=== PATIENT | male | born 1965 | race Caucasian/White ===

== ENCOUNTER 2017-06-21 14:19 | Emergency (ER) | payer MEDICAID, SELFPAY ==
[2017-06-21 14:26] VITALS: BP 138/84; PULSE 80; RESP 16; TEMP 36.8; O2SAT 96; BMI 28.8
--- NOTE | 2017-06-21 14:35 | XR_ITS ---
XR foot LT 2V HISTORY: ITS.REASON: R/O Fx ORDERING PHYSICIAN: Juan Carlos Dunbar MD PATIENT AGE: 51 years COMPARISON: None FINDINGS: There is a nondisplaced oblique fracture involving the mid shaft of the proximal phalanx of the fifth toe. No callus formation. No other significant anomalies. IMPRESSION: Nondisplaced oblique fracture proximal phalanx fifth toe
--- NOTE | 2017-06-21 14:43 | PC.NURSE ---
pt is belligierent and refuses to allow staff to continuously monitor his vital signs. pt very demanding and out of way with the registration staff. blood pressure cuff removed.
--- NOTE | 2017-06-21 14:52 | HMH.EDGENADL ---
ED Disposition Clinical Impression: Fracture of toe of left foot Qualifiers: Encounter type: initial encounter Toe: lesser toe Fracture type: closed Phalanx: proximal Fracture alignment: nondisplaced Qualified Code(s): S92.515A - Nondisplaced fracture of proximal phalanx of left lesser toe(s), initial encounter for closed fracture Disposition: Home, Self-Care Condition on Discharge: Good Instructions: DI for Toe Fracture, How to Use a Walking Boot, How to Joselo Tape Additional Instructions: Joselo tape fourth and fifth toes, change every 1-2 days. Orthopedic boot. Follow-up with orthopedics within 1 week, call for appointment. Additional instructions for CONTROLLED SUBSTANCES: You have been prescribed a medication that is a controlled substance. Controlled substances include pain medications known as opiates and sedative nerve medications known as benzodiazepines. Some common opiates include: Codeine (such as Tylenol #3) Hydrocodone (Vicodin, Lortab, Lorcet, [place]) Oxycodone (Percocet, Percodan, Oxycodone, Oxy IR) Some common benzodiazepines include: Diazepam (Valium) Lorazepam (Ativan) Alprazolam (Xanax) Clonazepam (Klonopin) Oxazepam (Serax) All of these controlled substances are highly addictive and frequently abused. Misuse can and frequently does lead to addiction as well as overdose and . Medication should be stored in a locked cabinet or other secure storage unit. Do not store the medication in a motor vehicle. Short term supplies, 3 days or less, are prescribed because of the highly addictive nature of the medication. Any of the controlled substance medication NOT taken should be disposed of properly and NOT SAVED. The recommended method of disposing of unused medications is: Place the medicines in a sealable plastic bag. If the medicine is a solid, crush it or add water to dissolve it. Add something undesirable (cat litter, coffee grounds, etc.) Dispose of sealed bag in household trash Do not flush or pour unused medicines down a sink or drain. Controlled substances should not be shared, given away or sold. Because of the addictive nature and frequent abuse, these medications are sometimes stolen. These medications should be kept in a safe place where they cannot be stolen. Do not keep them in your car or purse. Lost or stolen prescriptions for controlled substances WILL NOT BE REFILLED in this emergency department, regardless of whether a police report was filed. Prescriptions: Hydrocod/Acet 5/325 mg [[place] 5/325mg tablet] 1 tab PO Q6HP PRN #10 tab PRN Reason: Pain Referrals: Samir Leonard [Primary Care Provider] - - Critical Care Critical Care Time: No Attestation: On 06/21/17, the high probability of a clinically significant, sudden or life threatening deterioration of the following system(s) required my full and direct attention, intervention and personal management. The time I documented below is in addition to time spent performing reported procedures but includes the following listed in this critical care notation. Medical Decision Making - Jeremie Inquiry Pt receiving controlled substance: Yes Jeremie was queried for this patient: Yes Reference #:: [id number] Risks and benefits of using a controlled substance: were discussed with pt by me Comment: 0 rxs. Vital Signs: 06/21/17 14:26 Temperature 98.3 F Temperature Source Oral Pulse Rate [Right Radial] 80 Respiratory Rate 16 Blood Pressure [Right Arm] 138/84 Blood Pressure Mean [Right Arm] 102 Blood Pressure Source [Right Arm] Automatic Cuff Blood Pressure Position [Right Arm] Sitting 02 Sat by Pulse Oximetry 96 Oxygen Delivery Method Room Air Orders (Tests/Meds): ORDERS Category Date Time Status Foot XR left 2 views [XR foot LT 2V] Stat Exams 06/21/17 14:35 Ordered - Radiology Data #1 Image(s): Foot/Toes Image Reviewed: Yes I reviewed the patient's radiology image Nondisplaced fracture pro
[2017-06-21 16:09] VITALS: BP 124/75; PULSE 64; RESP 16; TEMP 36.8
== END 2017-06-21 16:12 | disposition home or self-care (01) ==
PROVIDERS: Emergency Provider Emergency Medicine; Family Provider Family Medicine; PCP Family Medicine
DX: S92.515A Nondisplaced fracture of proximal phalanx of left lesser toe(s), initial encounter for closed fracture (principal); W55.19XA Other contact with horse, initial encounter; Y92.73 Farm field as the place of occurrence of the external cause
CPT/HCPCS: 73630; 99281

== ENCOUNTER 2018-05-25 06:22 | Observation (INO) ==
--- NOTE | 2018-05-25 06:45 | Emergency Department Note ---
ED Disposition Clinical Impression: Cellulitis Qualifiers: Site of cellulitis: extremity Site of cellulitis of extremity: upper extremity Laterality: right Qualified Code(s): L03.113 - Cellulitis of right upper limb Disposition: Admitted as Observation Condition on Discharge: Good Referrals: Samir Leonard [Primary Care Provider] - - Critical Care Critical Care Time: No Attestation: On 05/25/18, the high probability of a clinically significant, sudden or life threatening deterioration of the following system(s) required my full and direct attention, intervention and personal management. The time I documented below is in addition to time spent performing reported procedures but includes the following listed in this critical care notation. Medical Decision Making - Medical Records Medical records reviewed: Yes: I reviewed the patient's medical records. - Jeremie Inquiry Pt receiving controlled substance: No Vital Signs: 05/25/18 06:27 05/25/18 07:27 Temperature 97.8 F 98.2 F Temperature Source Oral Oral Pulse Rate [Left] 92 H 70 Respiratory Rate 18 20 Blood Pressure [Right Arm] 178/110 H 130/98 H Blood Pressure Mean [Right Arm] 132 108 Blood Pressure Source [Right Arm] Automatic Cuff Automatic Cuff Blood Pressure Position [Right Arm] Sitting Sitting 02 Sat by Pulse Oximetry 98 99 Oxygen Delivery Method Room Air Room Air - Lab Data Lab results reviewed: Yes: I reviewed the patient's lab results. Lab Results 05/25/18 06:55: WBC 8.1, RBC 4.41 L, Hgb 15.2, Hct 44.2, MCV 100.1 H, MCH 34.4 H , MCHC 34.3, RDW 14.3, Plt Count 189, MPV 7.9, Neut % (Auto) 67.1, Lymph % (Auto) 23.8, [place] % (Auto) 7.2, Eos % (Auto) 1.3, Baso % (Auto) 0.7, Neut # (Auto) 5.4, Lymph # (Auto) 1.9, [place] # (Auto) 0.6, Eos # (Auto) 0.1, Baso # (Auto) 0.1 05/25/18 06:55: Sodium 136, Potassium 3.9, Chloride 100, Carbon Dioxide 23, Anion Gap 16.9 H, BUN 11, Creatinine 0.93, Estimated Creat Clear 119, Estimated GFR 85, Est GFR ( Amer) 103, Glucose 149 H, Calcium 9.6, Total Bilirubin 0.6, AST 57 H, ALT 95 H, Alkaline Phosphatase 113, C-Reactive Protein < 0.2, Total Protein 8.5 H, Albumin 3.7, Globulin 4.8 H, Albumin/Globulin Ratio 0.8 L Result diagrams: 05/25/18 06:55 05/25/18 06:55 Orders (Tests/Meds): ED MEDICATIONS Generic Name Dose Route Start Last Admin Trade Name Freq PRN Reason Stop Dose Admin Ampicillin Sodium/Sulbactam 100 mls @ 200 mls/hr 05/25/18 09:00 Sodium 3 gm/ Sodium Chloride IV 06/08/18 08:59 Q6H PETE Clindamycin Phosphate 900 mg/ 106 mls @ 100 mls/hr 05/25/18 08:00 Sodium Chloride IV 06/08/18 07:59 Q8H PETE Sodium Chloride 10 ml 05/25/18 07:00 Saline Flush 10ml Syringe IV 06/24/18 06:59 NEEDED PRN Maintain IV Site Discontinued Medications Generic Name Dose Route Start Last Admin Trade Name Freq PRN Reason Stop Dose Admin Ketorolac Tromethamine 30 mg 05/25/18 06:43 05/25/18 07:22 Toradol 30mg/Ml Vial IV 05/25/18 06:44 30 mg ONCE ONE Administration Tetanus/Diphtheria Toxoids 0.5 ml 05/25/18 06:44 Tenivac 0.5ml Syringe IM 05/25/18 06:45 .ONCE ONE Tetanus/Reduced Diphtheria/Acell Pertussis 0.5 ml 05/25/18 06:46 05/25/18 07:25 Adacel Tdap 0.5ml Syringe IM 05/25/18 06:47 0.5 ml .ONCE ONE Administration ORDERS Category Date Time Status Complete Blood Count Auto Diff Stat Lab 05/25/18 06:55 Results Erythrocyte Sedimentation Rate Stat Lab 05/25/18 06:55 Results Blood Culture Stat Micro 05/25/18 06:50 Received - Radiology Data #1 Image(s): Hand Image Reviewed: Yes I reviewed the patient's radiology image Preliminary Findings: Abnormal (sts and old fx ) - Physician Consults Physician Consulted: bustos Reason -: Pt condition Skin/Abscess/FB HPI - General Chief complaint: Extremity Problem,Nontraumatic Stated complaint: Rt Hand swelling Time Seen by Provider: 05/25/18 06:35 Mode of Arrival: Ambulatory Source of Information: Patient, Medical Record Limitations: No Limitations Description of Symptoms (Recalled from ER Triage Doc. by RN): Pt states he woke up this AM and right hand was swollen and painfull, denies injury - History of Present Illness HPI narrative: pt with swelling and tenderness rt hand - denies trauma MD complaint: abscess/boil Onset (ago): day(s) Tetanus up to date: no Location: R hand Severity: moderate Associated symptoms: denies other symptoms, other (pt is rt handed ) Treatments prior to arrival: none - Related Data Home Medications Medication Instructions Recorded Confirmed No Known Home Medications 05/25/18 05/25/18 Allergies Allergy/AdvReac Type Severity Reaction Status Date / Time No Known Allergies Allergy Verified 05/25/18 06:38 [facility] History - Hepatitis A Screen Drug use history?: No High risk sexual behaviors?: No History of sexually transmitted infection?: No Currently employed?: No Childcare worker?: No Do you have indoor plumbing?: Yes Do you have electricity?: Yes Attestation statement:: This patient has been screened for Hepatitis A risk factors. I have reviewed the patient's past medical history: Yes Medical History: Denies:: Diabetes Mellitus Type 1, Diabetes Mellitus Type 2 Amputation: No Fractures: No - Social History Smoking Status: Never smoker Alcohol Intake: current Alcohol Intake Frequency:: a few times a week Occupational Status: employed - Psychiatric History Expresses thoughts of harming self/others: None Suicide Plan Description: No Plan ROS Obtained: Yes All systems reviewed & no additional complaints - Constitutional Constitutional: Denies fever(s) - Eyes Eyes: Denies change in vision - ENT Ears, Nose, Mouth, and Throat: Denies sore throat - Cardiovascular Cardiovascular: Denies chest pain - Respiratory Respiratory: No cough - Gastrointestinal Gastrointestingal: Denies: abdominal pain - Genitourinary Male Genitourinary: Denies hematuria - Musculoskeletal Musculoskeletal: Reports as per HPI, Reports joint pain, Reports joint swelling, Reports limited range of motion - Integumentary/Breasts Skin/Breast: Denies rash - Neurologic Neurologic: Denies seizure-like activity Physical Exam - General General appearance: alert - Head Head exam: normocephalic - Eye Eye exam: Present: PERRL, EOMI - ENT ENT exam: Present: mucous membranes moist - Neck Neck exam: Present: trachea midline - Respiratory Respiratory exam: Absent: respiratory distress - Cardiovascular Cardiovascular exam: Present: regular rate - Expanded Upper Extremity Exam Right Hand exam: Present: tenderness, swelling, erythema, other (sl flexion contracture rt hand at base of 4th/ring finger ). Absent: full ROM Vascular exam: Normal: capillary refill - Expanded Lower Extremity Exam Right Neurovascular/Tendon exam: Present: motor deficit - Neurological Exam Neurological exam: Present: alert, oriented X3, CN II-XII intact - Psychiatric Psychiatric exam: Present: normal affect - Skin Skin exam: Absent: rash
[2018-05-25 07:08] LABS: Basophils # 0.1 K/mm3 (0-0.2); Basophils % 0.7 % (0.1-2.0); Eosinophils # 0.1 K/mm3 (0.0-0.4); Eosinophils % 1.3 % (0.1-12.0); Hematocrit 44.2 % (42.0-52.0); Hemoglobin 15.2 g/dL (14.1-18.0); Lymphocytes # 1.9 K/mm3 (0.7-4.5); Lymphocytes % 23.8 % (10-50); Mean Corpuscular HGB Conc 34.3 g/dL (31.8-35.4); Mean Corpuscular Hemoglobin 34.4 pg (27.0-31.2); Mean Corpuscular Volume 100.1 fl (80-94); Mean Platelet Volume 7.9 fl (7.4-10.4); Monocytes # 0.6 K/mm3 (0.1-1.0); Monocytes % 7.2 % (1.7-9.3); Neutrophils # 5.4 K/mm3 (1.8-7.8); Neutrophils % 67.1 % (37.0-80.0); Platelet Count 189 K/mm3 (142-424); Red Blood Count 4.41 M/mm3 (4.60-6.20); Red Cell Distribution Width 14.3 % (11.5-17.5); White Blood Count 8.1 K/mm3 (4.8-10.8)
[2018-05-25 07:17] LABS: Alanine Aminotransferase 95 U/L (12-78); Albumin Level 3.7 gm/dL (3.4-5.0); Albumin/Globulin Ratio 0.8 (1.1-1.8); Alkaline Phosphatase 113 U/L (46-116); Anion Gap 16.9 mEq/L (5-15); Aspartate Amino Transferase 57 U/L (15-37); Bilirubin,Total 0.6 mg/dL (0.2-1.0); Blood Urea Nitrogen 11 mg/dL (7-18); Calcium 9.6 mg/dL (8.5-10.1); Carbon Dioxide 23 mmol/L (21.0-32.0); Chloride 100 mmol/L (98-107); Globulin 4.8 gm/dl (1.3-3.2); Glucose 149 mg/dL (74-106); Potassium 3.9 mmoL/L (3.5-5.1); Sodium 136 mmol/L (136-145); Total Protein,Serum 8.5 gm/dL (6.4-8.2)
[2018-05-25 07:28] LABS: C-Reactive Protein < 0.2 mg/L (0.0-0.9)
--- NOTE | 2018-05-25 08:33 | Consult Report ---
*Admission Date: 05/25/18 *Chief complaint: Pain and swelling fourth finger right hand *History of present illness: Patient is a 52-year-old [id number] male who presented to the ER this morning with complaints of pain and swelling over the right hand and right fourth finger. There is no history of any injury. He says he had some discomfort in the hand yesterday and woke up this morning with severe pain, swelling and stiffness in his hand. 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 He localizes the pain to the volar aspect of the fourth finger mainly at the base of the finger extending proximally into the distal part of the hand and distally onto the volar aspect of the fourth finger. He reports no pain in other fingers. No history of any fevers, chills or rigors. No history of any previous hand problems or surgery. He says he does not have any medical problems and in fact he does not even have a primary care physician. However, he says he was told that he had high blood pressure long time ago but never received any treatment. He last ate a full meal last night and had fluids this morning when he woke up. Review of Systems - Review of Systems Review of systems:: pertinent systems reviewed and negative unless documented below - Constitutional Denies body ache(s), Denies chills, Denies fever(s) - Eyes Denies blurry vision, Denies change in vision - ENT Denies abnormal hearing - *Cardiovascular Denies chest pain, Denies chest pain with activity, Denies shortness of breath - *Respiratory Denies cough, Denies shortness of breath with activity - *Gastrointestinal Denies abdominal pain, Denies change in bowel habits, Denies difficulty swall owing - *Genitourinary Denies difficulty urinating, Denies painful urination - *Musculoskeletal Reports joint pain, Reports limited joint movement, Denies abnormal walking - Integumentary/Breasts Denies bleeding lesions, Denies skin ulcer - *Neurologic Denies abnormal walking, Denies seizure-like activity [facility] History I have reviewed the patient's past medical history: Yes Medical History: Denies:: Diabetes Mellitus Type 1, Diabetes Mellitus Type 2 Amputation: No Fractures: No - *Social History Smoking Status: Never smoker Alcohol Intake: current Alcohol Intake Frequency:: a few times a week *Occupational Status:: employed *Travel in the last 8 weeks: None - Psychiatric History Expresses thoughts of harming self/others: None Suicide Plan Description: No Plan Family Hx:: Non-contributory Meds Home Medications Medication Instructions Recorded Confirmed Type No Known Home Medications 05/25/18 05/25/18 History Allergies Allergy/AdvReac Type Severity Reaction Status Date / Time No Known Allergies Allergy Verified 05/25/18 06:38 Exam Vital signs and Labs for Last 24 Hours: Temp Pulse Resp BP Pulse Ox 98.2 F 70 20 130/98 H 99 05/25/18 07:27 05/25/18 07:27 05/25/18 07:27 05/25/18 07:27 05/25/18 07:27 Laboratory Results - last 24 hr 05/25/18 06:55: WBC 8.1, RBC 4.41 L, Hgb 15.2, Hct 44.2, MCV 100.1 H, MCH 34.4 H , MCHC 34.3, RDW 14.3, Plt Count 189, MPV 7.9, Neut % (Auto) 67.1, Lymph % (Auto) 23.8, [place] % (Auto) 7.2, Eos % (Auto) 1.3, Baso % (Auto) 0.7, Neut # (Auto) 5.4, Lymph # (Auto) 1.9, [place] # (Auto) 0.6, Eos # (Auto) 0.1, Baso # (Auto) 0.1 05/25/18 06:55: Sodium 136, Potassium 3.9, Chloride 100, Carbon Dioxide 23, Anion Gap 16.9 H, BUN 11, Creatinine 0.93, Estimated Creat Clear 119, Estimated GFR 85, Est GFR ( Amer) 103, Glucose 149 H, Calcium 9.6, Total Bilirubin 0.6, AST 57 H, ALT 95 H, Alkaline Phosphatase 113, C-Reactive Protein < 0.2, Total Protein 8.5 H, Albumin 3.7, Globulin 4.8 H, Albumin/Globulin Ratio 0.8 L I & O for Last 24 hours: Intake & Output 05/22/18 05/23/18 05/24/18 05/25/18 11:59 11:59 11:59 11:59 Weight 200 lb - Constitutional no acute distress, average body habitus, cooperative - *Routine HEENT Exam Head: Present: normocephalic, atraumatic Eye: Present: EOMI, PERRL ENT: Present: mucous membranes moist - *Routine Neck Exam Present: supple, full ROM, trachea midline. Absent: lymphadenopathy - *Routine Respiratory Exam Present: CTA bilaterally. Absent: respiratory distress - *Routine Cardiovascular Exam Present: RRR, Normal S1, Normal S2 - *Routine Extremities Exam Comments: On examination of his right hand, he has callosities over the palm and over the base of fingers on the volar aspect. There is diffuse swelling, erythema and tenderness over the fourth finger on the volar aspect. The tenderness is extending onto the hand to the level of the distal palmar crease. There is increased warmth and erythema involving the fourth finger. The [place] signs are positive- the fourth finger is in a slightly flexed posture, he is tender over the flexor tendon sheath of the fourth finger, there is marked pain with passive extension of the fourth finger and there is diffuse fusiform swelling of the fourth finger. Sensation is intact light touch throughout; Capillary refill is brisk. Diagnostic imaging: X-rays of the right hand performed today at [facility] reviewed along with radiologist report. The x-rays are showing diffuse swelling of the fourth digit. There is old healed fracture of the fifth metacarpal neck. No acute injuries noted. - Routine Back/Spine/Pelvis Exam Back/Spine: Present: full ROM - *Routine Skin Exam Present: intact, warm, normal turgor - *Routine Neurological Exam Present: alert, oriented X3, CN II-XII intact - Routine Psychiatric Exam Present: normal affect, cooperative Results - Labs Result Diagrams: 05/25/18 06:55 05/25/18 06:55 Labs: Abnormal lab results 05/25/18 05/25/18 Range/Units 06:55 06:55 RBC 4.41 L (4.60-6.20) M/mm3 MCV 100.1 H (80-94) fl MCH 34.4 H (27.0-31.2) pg Anion Gap 16.9 H (5-15) mEq/L Glucose 149 H (74-106) mg/dL AST 57 H (15-37) U/L ALT 95 H (12-78) U/L Total Protein 8.5 H (6.4-8.2) gm/dL Globulin 4.8 H (1.3-3.2) gm/dl Albumin/Globulin Ratio 0.8 L (1.1-1.8) H & H 05/25/18 Range/Units 06:55 Hgb 15.2 (14.1-18.0) g/dL Hct 44.2 (42.0-52.0) % All other labs normal. Assessment and Plan (1) Infection of flexor tendon sheath Current visit: Yes Status: Acute Category: Medical Code(s): M65.10 - Other infective (teno)synovitis, unspecified site - Assessment and plan all Dx Assessment and Plan for all problems:: I have reviewed the clinical, x-ray and laboratory findings with the patient. Clinically he has infection of the flexor tendon sheath of the right fourth finger with surrounding cellulitis. His white cell count is within normal range at 8.1 with a normal differential count, normal CRP and elevated ESR. I have discussed the diagnosis, natural history and management options including both nonsurgical and surgical. Given the nature of the infection with potential for serious complications, I have recommended an incision and drainage of the flexor tendon sheath right fourth finger. I have discussed the procedure, risks and benefits and alternatives in detail. The complications discussed include but are not limited to injury to blood vessels, nerves, tendons and ligaments, bleeding, incisional scar (cosmesis), continued pain, adhesions, tendon injury, tendon rupture, hypertrophic scarring, DVT/PE, finger stiffness, CRPS (complex regional pain syndrome- pain, sensory and temperature changes, swelling and stiffness), painful scar, incomplete relief of pain, incomplete return of function and likely need for further surgery in future and also the risks of anesthesia including heart attack, stroke, and even . I have discussed how there is a small but real possibility of loss of use of the arm, loss of the limb (amputation) or loss of life itself. I have also explained how additional surgery may be required if there are any complications or the condition fails to improve. We have also discussed the postoperative pain management, recovery and rehabilitation, the likely need for hand therapy, the possibility of stiffness, chronic pain and we've also discussed the option of nonsurgical treatment. The patient expressed a full understanding and has asked appropriate questions. All his questions were answered by me and he verbalized a good understanding. Patient desires to proceed with the proposed surgery of incision and drainage of flexor tenosynovitis right fourth finger. He is being admitted to hospital and being started on IV antibiotics. I am planning to take him to surgery this morning at the earliest opportunity.
[2018-05-25 08:39] LABS: Erythrocyte Sedimentation Rate 29 mm/hr (0-20)
--- NOTE | 2018-05-25 12:13 | Progress Note ---
[facility] Anesthesia Checklist - Patient Identification Patient Identification: Arm Band, Verbal (Name & ) - Structural Data Admitted From: Inpatient Planned Operative Procedure/s: i and d finger Consent for Planned Operative Procedure(s) Verified: Yes Verified Documents: History and Physical - NPO Status Verified Time NPO: 00:00 - Additional verifications Patient : No Anesthesia Reactions: No Hx Blood Transfusions: No Blood Transfusion Reaction: No Cephalosporin Allergy: No Previous Colonoscopy: No - Cardiovascular Assessment Heart Sounds: S1 & S2 Pulse Strength: Baseline Pulse Rhythm: Regular Peripheral Edema: No - Airway Assessment C-Spine Mobility Assessed: Yes TMJ Mobility Assessed: Yes Dentition: Good Dentition - Neurological Assessment Level of Consciousness: Awake, Alert, Appropriate Hx Seizures: No Numbness or tingling in extremities: No - Anesthesia Plan Anesthesia Risk discussed: Yes Anesthesia Plan: Verified ASA Class: I Anesthesia Type: General [facility] History I have reviewed the patient's past medical history: Yes Medical History: Denies:: Cancer, Diabetes Mellitus Type 1, Diabetes Mellitus Type 2 *Have you ever received a pneumonia vaccine?: No *Have you received a flu vaccine this season?: No Amputation: No Fractures: No - *Social History Educational Level: Completed High School Smoking Status: Never smoker Alcohol Intake: current Alcohol Intake Frequency:: a few times a week Substance Use Type: marijuana *Occupational Status:: employed Housing: house *Travel in the last 8 weeks: None - Psychiatric History Expresses thoughts of harming self/others: None Suicide Plan Description: No Plan Family Hx:: Non-contributory
--- NOTE | 2018-05-25 15:01 | Progress Note ---
[facility] Anesthesia Record Part I Intake, IV Amount: 900 Estimated blood loss (mL): 10 Urine output (mL): 0 Blood Products used (#): none Blood Pressure: 156/90 SaO2: 94 Pulse Rate: 92 Respiratory Rate: 18 Temperature: 97.6 F Patient is:: Awake, Stable Stable to PACU at:: 14:59
--- NOTE | 2018-05-25 15:01 | Progress Note ---
[facility] Anesthesia Record Part II Discharge Time: 15:29 Destination: Surgical Day Care (OP Surgery) PACU nurse assessment reviewed?: Yes Patient Condition:: Good Anesthesia Complications:: None Swallowing reflex intact?: Yes Cyanosis?: No
--- NOTE | 2018-05-25 17:19 | Operative Note ---
Date of procedure: 05/25/18 Pre-op Diagnosis:: Tenosynovitis flexor tendon sheath fourth finger, right hand Post-op Diagnosis:: Same Procedure performed:: Incision and drainage flexor tendon sheath fourth finger, right hand Surgeon:: Warren Lindsay MD ORNAMENTAL IRONWORKER:: Nigel Giraldo Anesthesia: MAC Estimated blood loss (mL): 5 Clinical Note:: Patient is a 52-year-old [id number] male who presented to the ER this morning with complaints of pain and swelling over the right hand and right fourth finger. There is no history of any injury. He says he had some discomfort in the hand yesterday and woke up this morning with severe pain, swelling and stiffness in his hand. 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 He localizes the pain to the volar aspect of the fourth finger mainly at the base of the finger extending proximally into the hand and distally onto the volar aspect of the fourth finger. He reports no pain in other finge rs. No history of any fevers, chills or rigors. No history of any previous hand problems or surgery. Clinical examination confirmed diagnosis of pyogenic flexor tenosynovitis with positive Kanavel's signs- the fourth finger is in a slightly flexed posture, he is tender over the flexor tendon sheath of the fourth finger, there is marked pain with passive extension of the fourth finger and there is diffuse fusiform swelling of the fourth finger. Sensation is intact light touch throughout; Capillary refill is brisk. Diagnostic imaging: X-rays of the right hand performed today at [facility] reviewed along with radiologist report. The x-rays are showing diffuse swelling of the fourth digit. There is old healed fracture of the fifth metacarpal neck. No acute injuries noted. Following discussion regarding management options, patient was admitted to hospital, started on IV antibiotics and prepared for surgical incision and drainage. Please refer to my consultation note for full details. Operative findings:: Infected flexor tendon sheath of the fourth finger with purulent material noted in the flexor tendon sheath as well as in the soft tissue at the level of the P1. The flexor tendons are intact and no obvious tendon tears or degeneration noted. No obvious bone or joint involvement was noted. There was cellulitis over the fourth finger extending onto the hand. Operative note:: Following evaluation in the ER, patient was admitted to hospital, started on IV antibiotics and prepared for surgical remediation. I have discussed the diagnosis, natural history and management options in detail including both nonsurgical and surgical. The procedure of incision and drainage/debridement of pyogenic flexor tenosynovitis was discussed with the patient. The complications discussed including but not limited to- infection, bleeding, injury to nerves, blood vessels, tendons, tendon adhesions, delayed tendon rupture, failure to eradicate the infection, incomplete recovery, persistent pain, stiffness, CRPS, DVT/PE, likely need for further surgery and anesthetic complications including stroke, heart attack and even . Patient wished to proceed with the surgical intervention. All his questions were answered and he verbalized a good understanding. The limb was appropriately marked. Patient understood the risks, agreed to proceed with surgery, signed the consent form and no guarantees or assurances were given or implied. Patient was brought to the operating room and placed supine on the operating table. The right upper extremity was placed over a hand table. All the bony prominences were appropriately padded. A general anesthesia was administered by the psychology intern. A well-padded tourniquet cuff was placed over the right upper arm. The right upper extremity was prepped and draped in usual sterile fashion. A preprocedure timeout was performed as per protocol. The limb was elevated but not exsanguinated and tourniquet inflated to 250 mmHg. Please see nursing notes for total tourniquet time. The skin incisions were marked for incision and drainage of the flexor tendon sheath of the fourth finger. I first made a small transverse incision in the palm distal to the distal flexor crease just proximal to the level of the A1 claudio. The implant dissection was carried down to the A1 claudio. The neurovascular bundles on either side were protected throughout. The flexor tendon sheath of the fourth finger was noted to be inflamed and filled with purulent fluid. I incised the sheath proximal to the level of the A1 claudio and the fluid was drained. I obtained culture swabs for aerobic and anaerobic cultures. I then made a distal incision at the level of the distal finger crease distal to the DIP joint. I again incised the flexor tendon sheath at this level. Using an Angiocath and a cholangiogramcatheter, I irrigated the flexor tendon sheath with copious amounts of normal saline with bacitracin. During the irrigation, I have noted pus coming out through the skin breakdown over the callus at the base of the finger. Therefore, I made an additional Catherine's skin incision at the base of the fourth finger across the proximal finger crease. Clear pus coming out from the flexor tendon sheath at this level was noted. I carried the dissection down to the tendon sheath and noted some necrotic tissue which was removed and the tissue was sent for culture and sensitivity. The wound was thoroughly irrigated with normal saline mixed with bacitracin. I again continued irrigating the flexor tendon sheath until clear fluid was noted. A total of 500 cc of normal saline with bacitracin was used. The tourniquet was released and hemostasis was obtained with bipolar diathermy. I then placed rubber drains in both the proximal and distal incisions. The skin incisions were then closed with interrupted 4-0 Ethilon sutures. 10 cc of 0.5% Marcaine injected proximally for postoperative pain relief. Sterile dressings were applied. Patient was then reversed from the anesthetic and transferred onto the bed. He was then safely transported to the postoperative recovery area in stable condition. He tolerated the procedure well and there were no immediate complications. The swab, needle and instrument counts were correct at the end of the procedure as per the scrub team. Postoperatively we will continue IV antibiotics and await culture results for any changes as needed. Patient was advised to keep the limb elevated and mobilize the fingers. Condition: stable Disposition: PACU Specimens:: Aerobic and anaerobic wound swabs for culture and sensitivity; tissue for culture and sensitivity Complications:: none
[2018-05-26 06:59] LABS: Basophils % 0.4 % (0.1-2.0); Eosinophils # 0.1 K/mm3 (0.0-0.4); Eosinophils % 0.9 % (0.1-12.0); Hematocrit 40.6 % (42.0-52.0); Hemoglobin 13.7 g/dL (14.1-18.0); Lymphocytes # 1.7 K/mm3 (0.7-4.5); Lymphocytes % 21.8 % (10-50); Mean Corpuscular HGB Conc 33.8 g/dL (31.8-35.4); Mean Corpuscular Hemoglobin 34.4 pg (27.0-31.2); Mean Corpuscular Volume 101.9 fl (80-94); Monocytes # 0.6 K/mm3 (0.1-1.0); Monocytes % 8.1 % (1.7-9.3); Neutrophils # 5.3 K/mm3 (1.8-7.8); Neutrophils % 68.9 % (37.0-80.0); Platelet Count 138 K/mm3 (142-424); Red Blood Count 3.99 M/mm3 (4.60-6.20); Red Cell Distribution Width 14.2 % (11.5-17.5); White Blood Count 7.7 K/mm3 (4.8-10.8)
--- NOTE | 2018-05-26 07:21 | Progress Note ---
Internal Medicine - PN: Subj *Date: 05/26/18 *Time: 07:16 Interval history: Patient was admitted yesterday afternoon for observation after having surgery for a right hand cellulitis and abscess of the fourth finger. Consult was placed by Dr. Lindsay when patient had severely elevated blood pressure postoperatively. Patient was asymptomatic. He reports no personal history of hypertension. He blames his elevated blood pressure on his postoperative state along with being quite nervous about the need to have surgery and his needle phobia. He tells me he monitors his blood pressure at home but cannot recall any numbers. His primary care physician is Dr. Samir Leonard in [place]. He admits it is been several years since he has seen the [facility]. When patient's blood pressure was elevated he felt fine. He was given hydrochlorothiazide and amlodipine. By this morning his blood pressure is within a normal range. Past medical history: Negative for hypertension Past surgical history: No surgeries prior to yesterday Family history: No family history of hypertension Exam Vital signs and Labs for Last 24 Hours: Temp Pulse Resp BP Pulse Ox 97.8 F 69 16 127/69 97 05/26/18 04:00 05/26/18 04:00 05/26/18 04:00 05/26/18 04:00 05/26/18 04:00 Laboratory Results - last 24 hr 05/25/18 06:55: ESR 29 H 05/25/18 06:55: Sodium 136, Potassium 3.9, Chloride 100, Carbon Dioxide 23, Anion Gap 16.9 H, BUN 11, Creatinine 0.93, Estimated Creat Clear 119, Estimated GFR 85, Est GFR ( Amer) 103, Glucose 149 H, Calcium 9.6, Total Bilirubin 0.6, AST 57 H, ALT 95 H, Alkaline Phosphatase 113, C-Reactive Protein < 0.2, Total Protein 8.5 H, Albumin 3.7, Globulin 4.8 H, Albumin/Globulin Ratio 0.8 L I & O for Last 24 hours: Intake & Output 05/23/18 05/24/18 05/25/18 05/26/18 11:59 11:59 11:59 11:59 Intake Total 2358 / 2358 Balance 2358 / 2358 Weight 210 lb 215 lb 3 oz Microbiology Reports for the Last 24 Hours: Microbiology 05/25/18 13:00 Finger,Right Ring - Wound Gram Stain - Final Narrative: Patient is sitting up in bed. He is awake and alert. He is eating breakfast this morning. ENT exam is grossly normal. Lungs are clear to auscultation. Heart has a regular rate and rhythm. Abdomen is soft and nontender. Assessment and Plan (1) Infection of flexor tendon sheath Current visit: Yes Status: Acute Category: Medical Code(s): M65.10 - Other infective (teno)synovitis, unspecified site (2) Elevated blood pressure reading in office without diagnosis of hypertension Current visit: Yes Status: Acute Category: Medical Code(s): R03.0 - Elevated blood-pressure reading, without diagnosis of hypertension - Assessment and plan all Dx Assessment and Plan for all problems:: Patient's blood pressures done this morning to the normal range. At this point I would recommend continued monitoring it is likely the postoperative state had something to do with his elevated blood pressure. If patient is discharged today he has been instructed to follow-up with Dr. Leonard and continue to monitor his blood pressure at home. If blood pressure rises again while hospitalized nursing staff can contact me for further orders
[2018-05-26 07:36] LABS: Albumin/Globulin Ratio 0.7 (1.1-1.8); Anion Gap 12.7 mEq/L (5-15); Bilirubin,Total 0.8 mg/dL (0.2-1.0); C-Reactive Protein 0.6 mg/L (0.0-0.9); Globulin 4.2 gm/dl (1.3-3.2); Potassium 3.7 mmoL/L (3.5-5.1); Total Protein,Serum 7.2 gm/dL (6.4-8.2)
--- NOTE | 2018-05-26 08:52 | Pharmacy Consult Notes ---
[facility] Pharmacy VTE Monitoring - Patient Demographics Admission date: 05/25/18 Report Date: 05/26/18 Time: 08:52 Allergies/Adverse Reactions: Patient Allergies No Known Allergies Allergy (Verified 05/25/18 06:38) Height: 1.83 m Weight: 97.607 kg Patient Problems: Current Active Problems Cellulitis (Acute) Infection of flexor tendon sheath (Acute) Elevated blood pressure reading in office without diagnosis of hypertension (Acute) - VTE Risk Labs: VTE Related Lab Results Hgb 13.7 g/dL (14.1-18.0) L 05/26/18 06:18 Hct 40.6 % (42.0-52.0) L 05/26/18 06:18 Plt Count 138 K/mm3 (142-424) L D 05/26/18 06:18 BUN 9 mg/dL (7-18) 05/26/18 06:18 Creatinine 0.94 mg/dL (0.70-1.30) 05/26/18 06:18 Estimated Creat Clear 127 mL/min (50-200) 05/26/18 06:18 Was VTE Risk Assessment Performed: Yes VTE Score: 1 VTE Risk Level: Very Low Risk Clinical Trial Participant: No - Prophylaxis VTE Prophylaxis Ordered?: Yes Types of VTE Prophylaxis: TEDS Knee High
--- NOTE | 2018-05-26 09:26 | Pharmacy Consult Notes ---
- Pharmacy Consult Date: 05/26/18 Time: 09:24 Referring provider: DR. GONZALEZ Reason for Consult:: VANCOMYCIN DOSING Allergies and ADEs:: Allergies Allergy/AdvReac Type Severity Reaction Status Date / Time No Known Allergies Allergy Verified 05/25/18 06:38 Home Medications:: Home Medications Medication Instructions Recorded Confirmed Type No Known Home Medications 05/25/18 05/25/18 History Height: 1.83 m Weight: 97.607 kg Laboratory Results:: Laboratory Results - last 24 hr 05/26/18 06:18: WBC 7.7, RBC 3.99 L, Hgb 13.7 L, Hct 40.6 L, MCV 101.9 H, MCH 34.4 H, MCHC 33.8, RDW 14.2, Plt Count 138 L D, MPV 8.0, Neut % (Auto) 68.9, Lymph % (Auto) 21.8, [place] % (Auto) 8.1, Eos % (Auto) 0.9, Baso % (Auto) 0.4, Neut # (Auto) 5.3, Lymph # (Auto) 1.7, [place] # (Auto) 0.6, Eos # (Auto) 0.1, Baso # (Auto) 0.0 05/26/18 06:18: ESR 27 H 05/26/18 06:18: Sodium 134 L, Potassium 3.7, Chloride 100, Carbon Dioxide 25, Anion Gap 12.7, BUN 9, Creatinine 0.94, Estimated Creat Clear 127, Estimated GFR 84, Est GFR ( Amer) 102, Glucose 110 H D, Calcium 8.0 L D, Total Bilirubin 0.8, AST 42 H D, ALT 68 D, Alkaline Phosphatase 88, C-Reactive Protein 0.6 D, Total Protein 7.2, Albumin 3.0 L D, Globulin 4.2 H, Albumin/Globulin Ratio 0.7 L Medical History: Denies:: Cancer, Diabetes Mellitus Type 1, Diabetes Mellitus Type 2, Seizures Assessment and Plan (1) Infection of flexor tendon sheath Current visit: Yes Status: Acute Category: Medical Code(s): M65.10 - Other infective (teno)synovitis, unspecified site (2) Elevated blood pressure reading in office without diagnosis of hypertension Current visit: Yes Status: Acute Category: Medical Code(s): R03.0 - Elev ated blood-pressure reading, without diagnosis of hypertension - Assessment and plan all Dx Assessment and Plan for all problems:: BASED ON PATIENT'S FACTORS, RECOMMEND STARTING WITH VANCOMYCIN 1750 MG Q12H AT THIS TIME. PHARMACY WILL FOLLOW DAILY AND ADJUST APPROPRIATE. JAMIE TORRES, PHARMD
--- NOTE | 2018-05-26 09:28 | Progress Note ---
Subjective Date: 05/26/18 Time: 08:45 Interval history: Patient is status post incision and drainage pyogenic tenosynovitis right fourth finger, post op day # 1. Patient says he is doing well and reports no problems. He reports minimal pain and says it's well-controlled with medication. No hist ory of any fevers, chills or rigors. No history of any cough, chest pain, shortness of breath or palpitations. Patient says he is eating and drinking well. No history of any distal tingling or numbness. Patient was seen by Dr. eJronimo for elevated blood pressure. PN: Obj Ex Vital signs: Temp Pulse Resp BP Pulse Ox 98.1 F 73 18 136/92 H 98 05/26/18 08:00 05/26/18 08:00 05/26/18 08:00 05/26/18 08:00 05/26/18 08:00 Narrative: Laboratory Results - last 24 hr 05/26/18 06:18: WBC 7.7, RBC 3.99 L, Hgb 13.7 L, Hct 40.6 L, MCV 101.9 H, MCH 34.4 H, MCHC 33.8, RDW 14.2, Plt Count 138 L D, MPV 8.0, Neut % (Auto) 68.9, Lymph % (Auto) 21.8, [place] % (Auto) 8.1, Eos % (Auto) 0.9, Baso % (Auto) 0.4, Neut # (Auto) 5.3, Lymph # (Auto) 1.7, [place] # (Auto) 0.6, Eos # (Auto) 0.1, Baso # (Auto) 0.0 05/26/18 06:18: ESR 27 H 05/26/18 06:18: Sodium 134 L, Potassium 3.7, Chloride 100, Carbon Dioxide 25, Anion Gap 12.7, BUN 9, Creatinine 0.94, Estimated Creat Clear 127, Estimated GFR 84, Est GFR ( Amer) 102, Glucose 110 H D, Calcium 8.0 L D, Total Bilirubin 0.8, AST 42 H D, ALT 68 D, Alkaline Phosphatase 88, C-Reactive Protein 0.6 D, Total Protein 7.2, Albumin 3.0 L D, Globulin 4.2 H, Albumin/Globulin Ratio 0.7 L Exam General appearance: alert, active, awake, no acute distress Cardiovascular: regular rate & rhythm, normal peripheral pulses Respiratory: No respiratory distress noted, speaks in full sentences ABD: soft and non tender Neuro: alert, awake, oriented x 3 Psych: normal mood and affect On examination of the right hand, the dressings are clean, dry and intact. There is no soakage of the dressings noted. No evidence of any complications noted. Distal capillary refill is brisk. Distal sensation is intact to light touch throughout. He is able to actively move the fingers. Progress Note: A&P (1) Infection of flexor tendon sheath Status: Acute Current Visit: Yes (2) Elevated blood pressure reading in office without diagnosis of hypertension Status: Acute Current Visit: Yes Assessment and Plan for All Diagnoses:: I have reviewed the clinical and operative findings and procedure performed with the patient. Patient is doing well and reports no problems. The microbiology showed gram-negative cocci but definitive identification of the organism and sensitivities are not yet available. Advised patient to continue elevation, ice, mobilization of the fingers as comfortable. Continue IV antibiotics and any changes to be made in accordance with the culture report and clinical response. Continue medical management as per Dr. Jeronimo.
--- NOTE | 2018-05-27 16:12 | Progress Note ---
Subjective Date: 05/27/18 Time: 15:30 Principal diagnosis: Pyogenic tenosynovitis, right ring finger Interval history: Patient is status post incision and drainage pyogenic tenosynovitis right fourth finger, post op day # 2. Patient says he is doing well and reports no problems. He reports minimal pain and says it's well-controlled with medication. No history of any fevers, chills or rigors. No history of any cough, chest pain, shortness of breath or palpitations. Patient says he is eating and drinking well. No history of any distal tingling or numbness. PN: Obj Ex Vital signs: Temp Pulse Resp BP Pulse Ox 97.8 F 69 16 150/98 H 97 05/27/18 08:11 05/27/18 08:11 05/27/18 08:11 05/27/18 08:11 05/27/18 08:11 Narrative: Microbiology 05/25/18 13:00 Finger,Right Ring - Wound Gram Stain - Final 05/25/18 13:00 Finger,Right Ring - Wound Wound Culture - Preliminary NO GROWTH AFTER 48 HOURS 05/25/18 13:00 Finger,Right Ring - Right Ring Gram Stain - Final 05/25/18 13:00 Finger,Right Ring - Right Ring Surgical Biopsy Culture - Preliminary Gram Positive Cocci 05/25/18 06:50 Blood Blood Culture - Preliminary NO GROWTH AFTER 48 HOURS 05/25/18 06:50 Blood Blood Culture - Preliminary NO GROWTH AFTER 48 HOURS Exam General appearance: alert, active, awake, no acute distress Cardiovascular: regular rate & rhythm, normal peripheral pulses Respiratory: No respiratory distress noted, speaks in full sentences ABD: soft and non tender Neuro: alert, awake, oriented x 3 Psych: normal mood and affect On examination of the right hand, the dressings are clean, dry and intact. The dressings are changed by me. There is a minimal of soakage of the dressings. The wounds/incisions look clean and healthy. I have removed the drains. No evidence of any complications noted. Distal capillary refill is brisk. Distal sensation is intact to light touch throughout. He is able to actively move the fingers. Progress Note: A&P (1) Infection of flexor tendon sheath Status: Acute Current Visit: Yes (2) Elevated blood pressure reading in office without diagnosis of hypertension Status: Acute Current Visit: Yes Assessment and Plan for All Diagnoses:: I have reviewed the clinical findings and progress with the patient that. Patient is doing very well and reports no problems. The microbiology showed gram-negative cocci but definitive identification of the organism and sensitivities are not yet available. They seem to clear elevation, ice, mobilization of the fingers as comfortable. Continue IV antibiotics for now and any changes to be made in accordance with the culture report. Patient is likely to be discharged home tomorrow with oral antibiotics. Continue medical management as per Dr. Jeronimo.
[2018-05-28 06:51] LABS: Basophils % 0.4 % (0.1-2.0); Eosinophils # 0.2 K/mm3 (0.0-0.4); Hematocrit 40.9 % (42.0-52.0); Hemoglobin 13.7 g/dL (14.1-18.0); Lymphocytes # 1.6 K/mm3 (0.7-4.5); Lymphocytes % 36.3 % (10-50); Mean Corpuscular HGB Conc 33.6 g/dL (31.8-35.4); Mean Corpuscular Hemoglobin 33.8 pg (27.0-31.2); Mean Corpuscular Volume 100.6 fl (80-94); Mean Platelet Volume 8.7 fl (7.4-10.4); Monocytes # 0.4 K/mm3 (0.1-1.0); Monocytes % 8.3 % (1.7-9.3); Neutrophils # 2.3 K/mm3 (1.8-7.8); Platelet Count 142 K/mm3 (142-424); Red Blood Count 4.06 M/mm3 (4.60-6.20); Red Cell Distribution Width 14.2 % (11.5-17.5); White Blood Count 4.5 K/mm3 (4.8-10.8)
[2018-05-28 07:31] LABS: Erythrocyte Sedimentation Rate 32 mm/hr (0-20)
--- NOTE | 2018-05-28 08:27 | Progress Note ---
Internal Medicine - PN: Subj *Date: 05/28/18 *Time: 08:26 Exam Vital signs and Labs for Last 24 Hours: Temp Pulse Resp BP Pulse Ox 96.2 F L 62 16 146/94 H 97 05/28/18 08:00 05/28/18 08:00 05/28/18 08:00 05/28/18 08:00 05/28/18 08:00 Laboratory Results - last 24 hr 05/28/18 06:40: WBC 4.5 L D, RBC 4.06 L, Hgb 13.7 L, Hct 40.9 L, MCV 100.6 H, MCH 33.8 H, MCHC 33.6, RDW 14.2, Plt Count 142, MPV 8.7, Neut % (Auto) 51.0, Lymph % (Auto) 36.3, [place] % (Auto) 8.3, Eos % (Auto) 4.0, Baso % (Auto) 0.4, Neut # (Auto) 2.3, Lymph # (Auto) 1.6, [place] # (Auto) 0.4, Eos # (Auto) 0.2, Baso # (Auto) 0.0, ESR 32 H 05/28/18 06:40: C-Reactive Protein 0.4 D I & O for Last 24 hours: Intake & Output 05/25/18 05/26/18 05/27/18 05/28/18 23:59 23:59 23:59 23:59 Intake Total 2358 / 2358 480 / 480 1100 / 1100 Output Total 200 / 200 Balance 2358 / 2358 480 / 480 1100 / 1100 -200 / -200 Weight 95.254 kg 97.607 kg 96.332 kg 96.36 kg Microbiology Reports for the Last 24 Hours: Microbiology 05/25/18 13:00 Finger,Right Ring - Right Ring Gram Stain - Final 05/25/18 13:00 Finger,Right Ring - Right Ring Surgical Biopsy Culture - Final Staphylococcus aureus 05/25/18 13:00 Finger,Right Ring - Wound Gram Stain - Final 05/25/18 13:00 Finger,Right Ring - Wound Wound Culture - Preliminary NO GROWTH AFTER 48 HOURS 05/25/18 06:50 Blood Blood Culture - Preliminary NO GROWTH AFTER 48 HOURS 05/25/18 06:50 Blood Blood Culture - Preliminary NO GROWTH AFTER 48 HOURS Assessment and Plan (1) Infection of flexor tendon sheath Current visit: Yes Status: Acute Category: Medical Code(s): M65.10 - Other infective (teno)synovitis, unspecified site (2) Elevated blood pressure reading in office without diagnosis of hypertension Current visit: Yes Status: Acute Category: Medical Code(s): R03.0 - Elevated blood-pressure reading, without diagnosis of hypertension The patient's infection will respond to the chosen ABx?: Yes Is the patient receiving the right drug, dose, and route?: Yes Could a more targeted ABx be ordered?: No (GROWING S.AUREUS IN WOUND CX SENSITIVE TO VANC AND CLINDAMYCIN)
--- NOTE | 2018-05-28 10:03 | Pharmacy Consult Notes ---
- Pharmacy Consult Date: 05/28/18 Time: 10:01 Referring provider: DR. GONZALEZ Reason for Consult:: VANCOMYCIN TROUGH RESULT Allergies and ADEs:: Allergies Allergy/AdvReac Type Severity Reaction Status Date / Time No Known Allergies Allergy Verified 05/25/18 06:38 Home Medications:: Home Medications Medication Instructions Recorded Confirmed Type No Known Home Medications 05/25/18 05/25/18 History Height: 1.83 m Weight: 96.36 kg Laboratory Results:: Laboratory Results - last 24 hr 05/28/18 06:40: WBC 4.5 L D, RBC 4.06 L, Hgb 13.7 L, Hct 40.9 L, MCV 100.6 H, MCH 33.8 H, MCHC 33.6, RDW 14.2, Plt Count 142, MPV 8.7, Neut % (Auto) 51.0, Lymph % (Auto) 36.3, [place] % (Auto) 8.3, Eos % (Auto) 4.0, Baso % (Auto) 0.4, Neut # (Auto) 2.3, Lymph # (Auto) 1.6, [place] # (Auto) 0.4, Eos # (Auto) 0.2, Baso # (Auto) 0.0, ESR 32 H 05/28/18 06:40: C-Reactive Protein 0.4 D 05/28/18 09:22: Vancomycin Trough 16.1 Medical History: Denies:: Cancer, Diabetes Mellitus Type 1, Diabetes Mellitus Type 2, Seizures Assessment and Plan (1) Infection of flexor tendon sheath Current visit: Yes Status: Acute Category: Medical Code(s): M65.10 - Other infective (teno)synovitis, unspecified site (2) Elevated blood pressure reading in office without diagnosis of hypertension Current visit: Yes Status: Acute Category: Medical Code(s): R03.0 - Elevated blood-pressure reading, without diagnosis of hypertension - Assessment and plan all Dx Assessment and Plan for all problems:: BASED ON PATIENT FACTORS AND VANCOMYCIN TROGUH LEVEL OF 16.1, RECOMMEND CONTINUING CURRENT DOSE OF VANCOMYCIN 1,750MG IV EVERY 12 HOURS. PHARMACY WILL CONTINUE TO MONITOR AND ADJUST DOSE APPROPRIATE. -LATRICE VILLELA PHARMD
--- NOTE | 2018-05-28 15:38 | Discharge Summary ---
General - General Admission date:: 05/25/18 Discharge date: 05/28/18 HPI HPI: Patient is a 52-year-old [id number] male who presented to the ER this morning with complaints of pain and swelling over the right hand and right fourth finger. There is no history of any injury. He says he had some discomfort in the hand yesterday and woke up this morning with severe pain, swelling and stiffness in his hand. 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 He localizes the pain to the volar aspect of the fourth finger mainly at the base of the finger extending proximally into the distal part of the hand and distally onto the volar aspect of the fourth finger. He reports no pain in other fingers. No history of any fevers, chills or rigors. No history of any previous hand problems or surgery. He says he does not have any medical problems and in fact he does not even have a primary care physician. However, he says he was told that he had high blood pressure long time ago but never received any treatment. He last ate a full meal last night and had fluids this morning when he woke up. Hospital Course Hospital Course: Following admission patient was started on IV antibiotics and prepared for the OR. He was taken to surgery the same day and underwent an incision and drainage of the infected flexor tendon sheath of right fourth finger. Postoperatively he made rapid progress and has been apyrexial. Surgical dressings were changed on the second postoperative day. The pain, swelling and mobility of the finger improved significantly. Following definitive culture results, patient was discharged home on oral Bactrim DS and clindamycin. At the time of discharge patient is hemodynamically stable. During his stay in the hospital, patient was noted to have elevated blood pressure intermittently. He was seen by Dr. Jeronimo and appropriate treatment was given. Patient is advised to follow-up with his primary care physician after discharge. Objective Vital signs: Temp Pulse Resp BP Pulse Ox 96.2 F L 62 16 146/94 H 97 05/28/18 08:00 05/28/18 08:00 05/28/18 08:00 05/28/18 08:00 05/28/18 08:00 no acute distress - *Routine HEENT Exam Head: Present: normocephalic, atraumatic Eye: Present: EOMI ENT: Present: mucous membranes moist - *Routine Neck Exam Present: supple, full ROM - *Routine Respiratory Exam Present: CTA bilaterally. Absent: respiratory distress - *Routine Abdominal Exam Present: soft, normoactive bowel sounds - *Routine Extremities Exam Comments: On examination of the right hand, the dressings are clean, dry and intact. There is no soakage of the dressings. No evidence of any complications noted. Distal capillary refill is brisk. Distal sensation is intact to light touch throughout. He is able to actively move the fingers. - *Routine Neurological Exam Present: alert, oriented X3 - Routine Psychiatric Exam Present: normal affect, cooperative Results Labs on day of discharge: Labs from last 24 hours 05/28/18 05/28/18 05/28/18 09:22 06:40 06:40 WBC 4.5 L D RBC 4.06 L Hgb 13.7 L Hct 40.9 L MCV 100.6 H MCH 33.8 H MCHC 33.6 RDW 14.2 Plt Count 142 MPV 8.7 Neut % (Auto) 51.0 Lymph % (Auto) 36.3 [place] % (Auto) 8.3 Eos % (Auto) 4.0 Baso % (Auto) 0.4 Neut # (Auto) 2.3 Lymph # (Auto) 1.6 [place] # (Auto) 0.4 Eos # (Auto) 0.2 Baso # (Auto) 0.0 ESR 32 H C-Reactive Protein 0.4 D Vancomycin Trough 16.1 Preliminary micro results at discharge 05/25/18 13:00 Wound Culture - Preliminary Finger,Right Ring - Wound NO GROWTH AFTER 72 HOURS 05/25/18 06:50 Blood Culture - Preliminary Blood NO GROWTH AFTER 48 HOURS 05/25/18 06:50 Blood Culture - Preliminary Blood NO GROWTH AFTER 48 HOURS DS: Diagnosis - Discharge Diagnosis (1) Infection of flexor tendon sheath Status: Acute (2) Elevated blood pressure reading in office without diagnosis of hypertension Status: Acute Discharge Plan - Patient Discharge Instructions ACTIVITY: Continue current activity, Ambulate as tolerated DIET: advance to your usual diet Patient Instructions: DI for Cellulitis -- Adult, High Blood Pressure, DI for Surgical Site Infection, DI for Incision and Drainage - Follow up Plan Follow up with: Warren Lindsay MD [Staff Physician] - 2 days Disposition: Home, Self-Intermediate Medications: Home Medications Medication Instructions Recorded Confirmed Type Clindamycin HCl [Clindamycin HCl 300 mg PO Q6 10 Days #40 cap 05/28/18 06/05/18 Rx 300mg Cap] Hydrocod/Acet 5/325 mg [[place] 1 tab PO Q6HP PRN #20 tab 05/28/18 06/05/18 Rx 5/325mg tablet] Sulfamethoxazole/Trimethoprim 1 each PO BID 10 Days #20 tab 05/28/18 06/05/18 Rx [Bactrim DS tablet] Prescriptions/Medication Reconciliation: New Sulfamethoxazole/Trimethoprim [Bactrim DS tablet] 1 each PO BID 10 Days #20 tab Hydrocod/Acet 5/325 mg [[place] 5/325mg tablet] 1 tab PO Q6HP PRN #20 tab PRN Reason: MOD-SEVERE PAIN Clindamycin HCl [Clindamycin HCl 300mg Cap] 300 mg PO Q6 10 Days #40 cap - Additional Information Additional Information: Our recommendations on discharge include elevation, icing, active finger movements as comfortable, as needed pain medication and regular antibiotics as prescribed. I have recommended oral Bactrim DS 1 twice daily and clindamycin 300 mg every 6 hourly for 2 weeks. Any alterations of the antibiotic course will depend on his progress. During his hospital stay we had noted his blood pressure to be elevated. I have advised the patient see his primary care physician as soon as possible after discharge for further evaluation and management of this. Patient will follow up with me in the office in 2-3 days for wound check and change of dressings. Please feel free to call our office at [phone] or via the hospital [facility] butting machine operator [phone] for any orthopaedic questions or concerns.
== END 2018-05-28 15:45 | disposition home or self-care (01) ==
LOC: ER 06:22 → 2ND 08:26 → INTOOBSV 08:26 → 2ND 08:50
PROVIDERS: ADMIT Orthopaedic Surgery; ATTEND Orthopaedic Surgery
CPT/HCPCS: 36415; 73130; 80053; 80202; 85025; 85651; 86140; 87040; 87070; 87075; 87077; 87186; 87205; 90471; 90715; 93005; 96365; 96367; 96375; 99284; G0378; J2405; J3370

== ENCOUNTER → 2018-06-05 14:37 | Outpatient (CLI) | payer MEDICAID, SELFPAY ==
[2018-06-05 14:48] LABS: Basophils # 0.1 K/mm3 (0-0.2); Eosinophils # 0.2 K/mm3 (0.0-0.4); Eosinophils % 2.6 % (0.1-12.0); Hematocrit 44.5 % (42.0-52.0); Hemoglobin 14.9 g/dL (14.1-18.0); Lymphocytes # 2.6 K/mm3 (0.7-4.5); Lymphocytes % 33.9 % (10-50); Mean Corpuscular HGB Conc 33.5 g/dL (31.8-35.4); Mean Corpuscular Hemoglobin 33.7 pg (27.0-31.2); Mean Corpuscular Volume 100.5 fl (80-94); Monocytes # 0.7 K/mm3 (0.1-1.0); Monocytes % 9.6 % (1.7-9.3); Neutrophils # 4.1 K/mm3 (1.8-7.8); Neutrophils % 52.9 % (37.0-80.0); Platelet Count 246 K/mm3 (142-424); Red Blood Count 4.43 M/mm3 (4.60-6.20); Red Cell Distribution Width 14.2 % (11.5-17.5); White Blood Count 7.8 K/mm3 (4.8-10.8)
[2018-06-05 15:02] LABS: C-Reactive Protein < 0.2 mg/L (0.0-0.9)
[2018-06-05 15:29] LABS: Erythrocyte Sedimentation Rate 19 mm/hr (0-20)
== END ==
PROVIDERS: Visit Provider Orthopaedic Surgery
DX: M65.10 Other infective (teno)synovitis, unspecified site (principal)
CPT/HCPCS: 36415; 85025; 85651; 86140